=== PATIENT | female | born 1970 | race Caucasian/White ===

== ENCOUNTER 2017-02-09 17:59 | Emergency (ER) ==
[2017-02-09 18:30] LABS: EOS# 0.04 X1000 (0.0-0.7); EOS% 0.3 % (0.0-10.0); HEMOGLOBIN 14.3 g/dL (12.0-16.0); IMM GRAN# 0.02 X1000 (0.0-0.04); IMM GRAN% 0.2 % (0.0-0.5); LYMPH# 0.48 X1000 (1.2-3.4); MANUAL DIFF NEEDED? NO; MCV 90.9 FL (81-99); MONO# 0.42 X1000 (0.11-0.59); MONO% 3.5 % (1.7-9.3); MPV 9.7 FL (7.4-10.4); PLT 226 X1000 (130-400); RBC 4.62 XMIL (4.2-5.4)
[2017-02-09 18:41] LABS: AGAP 13; ALKALINE PHOSPHATASE 94 U/L (32-104); AMYLASE 40 U/L (20-200); BUN 11 mg/dL (8-22); CALCIUM 9.1 mg/dL (8.8-10.2); CHLORIDE 103 mmol/L (98-107); COSMO 280; GOT 16 U/L (10-30); GPT 14 U/L (10-36); LIPASE 23 U/L (13-60); SODIUM 140 mmol/L (136-145); TCO2 24 mmol/L (25-35); TOTAL BILIRUBIN 0.34 mg/dL (0.20-1.00)
--- NOTE | 2017-02-09 20:10 | PROVIDER DOCUMENTATION ---
HPI-Abdominal Pain/GI Problem - General Chief Complaint: Abdominal Pain Stated Complaint: ABD PAIN Time Seen by Provider: 02/09/17 20:05 Source: patient Allergies/Adverse Reactions: Patient Allergies Allergy/AdvReac Type Severity Reaction Status Date / Time No Known Allergies Allergy Verified 02/10/17 02:56 Home Medications: Home Medication List Medication Instructions Recorded Confirmed Last Taken Type Ciprofloxacin HCl [Cipro] 500 mg PO BID #14 tablet 02/10/17 Unknown Rx Metronidazole 500 mg PO TID #21 tablet 02/10/17 Unknown Rx Promethazine [Phenergan] 25 mg PO Q6H PRN PRN #20 tablet 02/10/17 Unknown Rx - History of Present Illness-ABD Nature of Presenting Problems: 46 y/o F c/o epigastric abd. pain x 12 hours. Pt states that she woke up with the pain that is getting worse. States vomiting and diarrhea since this started. States that she has taken 50 mg of phenergan today and has only had one half a piece of toast. Pain is intermittent and 9/10 and 25/10 at it's worst. Vomit x 2, diarrhea has been continuous. Review of Systems - Adult - REVIEW OF SYSTEMS - ADULT Constitutional: reports: no symptoms reported. denies: chills, fever Eyes: reports: no symptoms reported. denies: blurred vision, double vision Ears, Nose, Mouth & Throat: reports: no symptoms reported. denies: ear pain, nose pain Cardiovascular: reports: no symptoms reported. denies: chest pain, palpitations Respiratory: reports: no symptoms reported. denies: dyspnea on exertion, shortness of breath Gastrointestinal: reports: see HPI, abdominal pain, diarrhea, nausea, vomiting. denies: constipation Genitourinary: reports: no symptoms reported. denies: dysuria, frequency Musculoskeletal: reports: no symptoms reported. denies: joint pain, joint swelling Integumentary: reports: no symptoms reported. denies: nail changes, rash Neurological: reports: no symptoms reported. denies: numbness, paresthesia Psychiatric: reports: no symptoms reported Endocrine: reports: no symptoms reported. denies: cold intolerance, heat intolerance Hematologic/Lymphatic: reports: no symptoms reported. denies: easy bruising, prolonged bleeding Allergic/Immunologic: reports: no symptoms reported All Other Systems: Reviewed and Negative Past History - Adult - PAST MEDICAL HISTORY-ADULT Review of Records: reports: Nursing Assessment Review, Medications Reviewed LMP: 12/21/16 Neurological: reports: Multiple Sclerosis - PRIOR SURGERIES/PROCEDURES Surgical/Procedure History: reports: , orthopedic (extremity) (LUE reattachment), other (breast reduction) - SOCIAL HISTORY Smoking: denies Alcohol Use Frequency: never Physical Exam-General - PHYSICAL EXAM-ADULT Initial Vital Signs Reviewed: Yes - CONSTITUTIONAL General Appearance: alert, mild distress - EYES Eyes: pink conjunctivae - HEAD, EARS, NOSE, MOUTH & THROAT HENMT: normocephalic/atraumatic, moist mucous membranes, pharynx normal - NECK Neck: normal inspection - RESPIRATORY Respiratory: lungs clear, normal breath sounds. negative: crackles, rales, rhonchi, stridor, wheezing - CARDIOVASCULAR Cardiovascular: regular rate, rhythm. negative: bradycardia, tachycardia - GASTROINTESTINAL (ABDOMEN) Abdominal Exam: normal bowel sounds, soft, tenderness (RUQ, LUQ, epigastric, umbilicus). negative: distended, guarding, rigid, rebound, McBurney's point tenderness - MUSCULOSKELETAL Back Exam: no CVA tenderness Extremity: normal gait. negative: abnormal NV exam - SKIN Integumentary: normal color, normal turgor, warm/dry - NEUROLOGIC Neurologic: negative: aphasia - PSYCHIATRIC Psych/Mental Status: normal mood/affect, normal thought content, normal thought process, oriented x 3 Progress - PLAN OF CARE/RESULTS Progress/Plan/Lab Results: Laboratory Tests 02/09/17 02/09/17 02/10/17 18:09 18:09 02:16 WBC 12.09 H RBC 4.62 Hgb 14.3 Hct 42.0 MCV 90.9 MCH 31.0 MCHC 34.0 RDW Std Deviation 13.0 Plt Count 226 MPV 9.7 Immature Gran % (Auto) 0.2 Neut % (Auto) 92.0 H Lymph % (Auto) 4.0 L W[place] % (Auto) 3.5 Eos % (Auto) 0.3 Baso % (Auto) 0.0 Immature Gran # (Auto) 0.02 Neut # (Auto) 11.13 H Lymph # (Auto) 0.48 L [place] # (Auto) 0.42 Eos # (Auto) 0.04 Baso # (Auto) 0.00 Sodium 140 Potassium 4.0 Chloride 103 Carbon Dioxide 24 L Anion Gap 13 BUN 11 Creatinine 0.8 Estimated GFR/1.73 m2 > 60 BUN/Creatinine Ratio 14 Glucose 116 H Calculated Osmolality 280 Calcium 9.1 Total Bilirubin 0.34 AST 16 ALT 14 Alkaline Phosphatase 94 Total Protein 7.0 Albumin 4.0 Globulin 3.0 Albumin/Globulin Ratio 1.3 Amylase 40 Lipase 23 Urine Source VOIDED Urine Color YELLOW Urine Turbidity CLEAR Urine pH 6.5 Ur Specific [place] 1.010 Urine Protein 100 A Ur Glucose (Stick) NEGATIVE Ur Ketones (Stick) NEGATIVE Urine Blood NEGATIVE Urine Nitrite NEGATIVE Urine Bilirubin NEGATIVE Urobilinogen Dipstick NORMAL Urine Leukocytes NEGATIVE Urine WBC (Auto) <10 Urine RBC (Auto) 10-20 A U Epithel Cells (Auto) >10 A Urine Bacteria (Auto) 1+ Urine Crystals Not Reportable Small Round Cells Not Reportable Urine Casts NONE SEEN Urine Yeast-like Cells Not Reportable Orders Category Date Time Status CT ABD/PELVIS W/ IV CONT ONLY [CT] Stat Exams 02/09/17 20:14 Draft AMYLASE [CHEM] Stat Lab 02/09/17 18:09 Completed CBC WITH ELECTRONIC DIFF [HEME] Stat Lab 02/09/17 18:09 Completed COMPREHENSIVE METABOLIC PANEL [CHEM] Stat Lab 02/09/17 18:09 Completed LIPASE [CHEM] Stat Lab 02/09/17 18:09 Completed URINALYSIS [URINALYSIS] Stat Lab 02/10/17 02:16 Completed URINE MANUAL MICROSCOPIC [URINALYSIS] Stat Lab 02/10/17 02:16 Completed 0.9% Sodium Chloride Inj [Ns] 1,000 ml Med 02/10/17 02:35 Discontinued IV 999 mls/hr Ciprofloxacin [Cipro] Med 02/10/17 01:59 Discontinued 500 mg PO NOW ONE Metronidazole [Flagyl] Med 02/10/17 01:59 Discontinued 500 mg PO NOW ONE Pantoprazole [Protonix] Med 02/10/17 02:35 Discontinued 40 mg IV NOW ONE Promethazine [Phenergan] Med 02/10/17 02:35 Discontinued 12.5 mg IV NOW ONE Promethazine [Phenergan] Med 02/10/17 01:59 Discontinued 25 mg IM NOW ONE Sodium Chloride 0.9% Med 02/10/17 02:35 Discontinued 10 ml INJ NOW ONE Sodium Chloride 0.9% Med 02/10/17 02:35 Discontinued 10 ml INJ NOW ONE Vital Signs Temp Pulse Resp BP Pulse Ox 02/10/17 03:14 107 H 20 107/58 99 02/10/17 00:41 97.4 F L 113 H 20 123/64 98 02/09/17 18:06 97.9 F 105 H 18 131/74 97 No Known Allergies Allergy (Verified 02/10/17 02:56) Ciprofloxacin HCl [Cipro] 500 mg PO BID #14 tablet 02/10/17 Metronidazole 500 mg PO TID #21 tablet 02/10/17 Promethazine [Phenergan] 25 mg PO Q6H PRN PRN #20 tablet 02/10/17 Laboratory 02/10/17 02/09/17 02/09/17 02:16 18:09 18:09 WBC 12.09 H RBC 4.62 Hgb 14.3 Hct 42.0 MCV 90.9 MCH 31.0 MCHC 34.0 RDW Std Deviation 13.0 Plt Count 226 MPV 9.7 Immature Gran % (Auto) 0.2 Neut % (Auto) 92.0 H Lymph % (Auto) 4.0 L [place] % (Auto) 3.5 Eos % (Auto) 0.3 Baso % (Auto) 0.0 Immature Gran # (Auto) 0.02 Neut # (Auto) 11.13 H Lymph # (Auto) 0.48 L [place] # (Auto) 0.42 Eos # (Auto) 0.04 Baso # (Auto) 0.00 Sodium 140 Potassium 4.0 Chloride 103 Carbon Dioxide 24 L Anion Gap 13 BUN 11 Creatinine 0.8 Estimated GFR/1.73 m2 > 60 BUN/Creatinine Ratio 14 Glucose 116 H Calculated Osmolality 280 Calcium 9.1 Total Bilirubin 0.34 AST 16 ALT 14 Alkaline Phosphatase 94 Total Protein 7.0 Albumin 4.0 Globulin 3.0 Albumin/Globulin Ratio 1.3 Amylase 40 Lipase 23 Urine Source VOIDED Urine Color YELLOW Urine Turbidity CLEAR Urine pH 6.5 Ur Specific [place] 1.010 Urine Protein 100 A Ur Glucose (Stick) NEGATIVE Ur Ketones (Stick) NEGATIVE Urine Blood NEGATIVE Urine Nitrite NEGATIVE Urine Bilirubin NEGATIVE Urobilinogen Dipstick NORMAL Urine Leukocytes NEGATIVE Urine WBC (Auto) <10 Urine RBC (Auto) 10-20 A U Epithel Cells (Auto) >10 A Urine Bacteria (Auto) 1+ Urine Crystals Not Reportable Small Round Cells Not Reportable Urine Casts NONE SEEN Urine Yeast-like Cells Not Reportable Discussed pt with Dr. Cazares; he agreed with d/c home after reviewing results. Discussed results and f/u with pt. - CT/MRI 1 CT Study: Abdomen, Pelvis Impression: See EMR Report (Evidence of nonspecific enteritis which is most likely infectious or inflammatory. No obstruction or perforation. -per Dr. Ramos ([facility])) Departure - Departure Time of Disposition Order: 01:56 DIAGNOSIS: Enteritis Disposition: HOME 01 Certified Medical Emergency: Emergent Condition: Stable Additional Instructions: Take medications as directed. Follow up with PCP or specialist for further management. ED Follow Up Instructions: You have been treated by a care provider in the Emergency Department. These instructions are being provided to you so you can have an understanding of how to care for yourself upon discharge. Upon discharge from the Emergency Department, you are responsible for making arrangements for follow-up care by a physician of your choice. Take all prescribed medications as directed. Return to the Emergency Department immediately for any new or worsening symptoms. You may call the Physician Referral phone number at [phone] to obtain a list of Physicians who are taking new patients. Prescriptions: Ciprofloxacin HCl [Cipro] 500 mg PO BID #14 tablet Metronidazole 500 mg PO TID #21 tablet Promethazine [Phenergan] 25 mg PO Q6H PRN PRN #20 tablet PRN Reason: Nausea Referrals: None,PCP [Primary Care Provider] - Gonzalez Ayala MD [STAFF PHYSICIAN] - Forms: Return to School/Parent Work Instructions: Nausea, Adult, Abdominal Pain, Adult, [id number] Attestation - Physician/ DYAN Attestation Patient care was provided by Advanced Practice Provider:: Yes Advanced Practice Provider:: Alem Garcia Advanced Practice Provider documentation review:: The Mid-level provider documentation, treatment plan and medical decision making was reviewed by the physician who agrees with all treatment and medical decision making by the P.
[2017-02-10] MEDS ORDERED: CIPRO PO ONE (01:59)
[2017-02-10] MEDS ORDERED: PHENERGAN IM ONE (01:59)
[2017-02-10] MEDS ORDERED: FLAGYL PO ONE (01:59)
[2017-02-10] MEDS ORDERED: PROTONIX IV ONE (02:35)
[2017-02-10] MEDS ORDERED: NS 1,000 ML IV ONE (02:35)
[2017-02-10] MEDS ORDERED: SODIUM CHLORIDE 0.9% INJ ONE ×2 (02:35)
[2017-02-10] MEDS ORDERED: PHENERGAN IV ONE (02:35)
[2017-02-10 03:13] LABS: URINE SOURCE VOIDED
[2017-02-10 03:14] LABS: BILIRUBIN URINE NEGATIVE (NEGATIVE); BLOOD URINE NEGATIVE (NEGATIVE); COLOR YELLOW; GLUCOSE URINE NEGATIVE (NEGATIVE); LEUKOCYTES URINE NEGATIVE (NEGATIVE); NITRITE URINE NEGATIVE (NEGATIVE); PH URINE 6.5; PROTEIN URINE 100 mg/dL (NEGATIVE); TURBIDITY URINE CLEAR (CLEAR); UROBILINOGEN URINE NORMAL (NORMAL)
[2017-02-10 03:15] LABS: URINE MICRO REVIEW NEEDED? YES
[2017-02-10 03:17] VITALS: BP 107/58
[2017-02-10 03:34] LABS: UR EPITHELIAL CELLS >10 /HPF (<10); URINE BACTERIA 1+ /HPF; URINE WBC <10 /HPF (<10)
[2017-02-10 03:35] LABS: URINE CASTS NONE SEEN
--- NOTE | 2017-02-10 10:36 | Diag Imaging Result Document ---
PROCEDURE NAME: CT ABD/PELVIS W/ IV CONT ONLY - 02/09/2017 CT ABDOMEN AND PELVIS WITH IV CONTRAST: COMPARISON: None available. FINDINGS: There are low-dense masses exhibiting peripheral nodular enhancement in the left hepatic lobe and right hepatic lobe. The left hepatic lobe mass measures 3.5 x 2.2 cm axially. The right hepatic lobe mass measures 4.3 x 2.9 cm axially. This enhancement pattern is strongly suggestive of hemangiomas. There are fluid-filled loops of small bowel without significant distention. However, there appears to be minimal small-bowel wall thickening. This is mainly in the pelvis. This is suggestive of nonspecific enteritis, likely infectious or inflammatory. There is a small amount of free fluid layering in the pelvis. There is no evidence of bowel obstruction and there is no free abdominal gas. The appendix is normal. There is a small right inguinal hernia that contains only fat. The remainder of the solid viscera of the abdomen and pelvis and the remainder of the GI tract is essentially unremarkable. IMPRESSION: 1. Fluid-filled loops of small bowel with mild small-bowel wall thickening mainly in the pelvis suggesting nonspecific enteritis that is likely infectious or inflammatory. 2. A couple peripherally enhancing low-dense masses involving the liver with an enhancement pattern strongly suggestive of hemangiomas. 3. Other incidental/nonacute findings detailed above.
== END 2017-02-10 03:08 | disposition home or self-care (01) ==
LOC: ED 17:59
DX: K52.9 Noninfective gastroenteritis and colitis, unspecified (principal); R10.13 Epigastric pain; R11.2 Nausea with vomiting, unspecified; R19.7 Diarrhea, unspecified; R10.811 Right upper quadrant abdominal tenderness; R10.812 Left upper quadrant abdominal tenderness; R10.816 Epigastric abdominal tenderness; G35 Multiple sclerosis
CPT/HCPCS: 36415; 74177; 80053; 81001; 82150; 83690; 85025; 96374; J2550; Q9967